=== PATIENT | male | born 1970 | race Caucasian/White ===

== ENCOUNTER 2019-04-12 18:29 | Inpatient (IN) | payer SELFPAY ==
[~2019-04-12] VITALS: Ht 170.1 cm; Wt 56.0 kg
[2019-04-12 18:50] VITALS: BP 125/83
--- NOTE | 2019-04-12 21:27 | NUR ---
REPORT FROM DELFINA KASPER AT THIS TIME. PATIENT CURRENTLY NOT IN EXAM ROOM.
[2019-04-12 21:50] LABS: BASO % 0.2 % (0.0-1.0); EOS # 0.1 10*3/uL (0.0-0.4); EOS % 0.9 % (1.0-4.0); HEMATOCRIT 44.3 % (42.0-52.0); HEMOGLOBIN 14.6 g/dl (14.0-18.0); LYMPH # 1.8 10*3/uL (1.3-4.4); LYMPH % 18.3 % (27.0-41.0); MEAN CELL VOLUME 87.5 fl (80.0-94.0); MEAN CORPUSCULAR HGB 28.9 pg (27.0-31.0); MEAN PLATELET VOLUME 9.4 fl (9.6-12.3); MONO # 0.9 10*3/uL (0.1-1.0); MONO % 9.1 % (3.0-9.0); NEUT # 7.1 10*3/uL (2.3-7.9); NEUT % 71.2 % (47.0-73.0); PLATELET COUNT AUTOMATED 213 10*3/uL (130-400); RED BLOOD COUNT 5.06 10*6/uL (4.50-5.90); RED CELL DISTRI WIDTH 13.3 % (0-14.5)
[2019-04-12 22:06] LABS: ALBUMIN 3.2 gm/dl (3.1-4.5); ALKALINE PHOSPHATASE 92 U/L (45-117); BUN 11 mg/dl (7-24); CHLORIDE 99 mmol/L (98-107); CREATININE 0.76 mg/dL (0.70-1.30); POTASSIUM 3.4 mmol/L (3.5-5.1); SGOT/AST 15 IU/L (3-35); SGPT/ALT 15 U/L (12-78); SODIUM 135 mmol/L (136-145)
[2019-04-12 23:50] LABS: BILIRUBIN NEGATIVE (NEGATIVE); BLOOD NEGATIVE (NEGATIVE); CLARITY CLEAR (CLEAR); COLOR YELLOW (YELLOW); GLUCOSE NEGATIVE (NEGATIVE); KETONE NEGATIVE (NEGATIVE); LEUKO ESTERASE NEGATIVE (NEGATIVE); NITRITE NEGATIVE (NEGATIVE); PH 6.5 (5.0-9.0); SPECIFIC GRAVITY 1.015 (1.005-1.030)
[2019-04-12 23:56] LABS: MUCOUS TRACE
[2019-04-13] VITALS (7 sets, daily range): BP systolic 119–158; BP diastolic 58–95
[2019-04-13 00:01] LABS: URINE AMPHETAMINES < 1000 (1000ng/ml); URINE BARBITURATES < 200 (200ng/ml); URINE BENZODIAZEPINES < 200 (200ng/ml); URINE CANNABINOIDS (THC) < 50 (50ng/ml); URINE COCAINE > 300 (300ng/ml); URINE METHADONE < 300 (300ng/ml); URINE OPIATES > 300 (300ng/ml)
[2019-04-13 00:02] LABS: URINE PHENCYCLIDINE < 25 (25ng/ml)
--- NOTE | 2019-04-13 00:20 | NUR ---
Time: 19 A 48 year old MALE admitted to under services of LUISITO KOWALSKI DO. Pt. arrived via ambulatory from ER. Chief complaint: MATTHEW LAND
--- NOTE | 2019-04-13 02:25 | NUR ---
NOTIFIED OF NO HOME MEDICATIONS AND ABCESS WOUND, WILL ENTER WOUND CARE ORDERS.
[2019-04-13 05:51] LABS: BUN 9 mg/dl (7-24); CHLORIDE 104 mmol/L (98-107); CREATININE 0.71 mg/dL (0.70-1.30); POTASSIUM 3.6 mmol/L (3.5-5.1); SODIUM 138 mmol/L (136-145)
[2019-04-13 05:56] LABS: CHOLESTEROL 130 mg/dL (<200); HDL CHOLESTEROL 34 mg/dl (40-60); LDL CHOLESTEROL 79 mg/dL (9-159); TRIGLYCERIDES 85 mg/dl (<150); VLDL CHOLESTEROL 17 mg/dL (6-40)
[2019-04-13 06:19] LABS: BASO % 0.4 % (0.0-1.0); EOS # 0.1 10*3/uL (0.0-0.4); EOS % 1.2 % (1.0-4.0); HEMATOCRIT 41.9 % (42.0-52.0); HEMOGLOBIN 13.4 g/dl (14.0-18.0); LYMPH % 21.7 % (27.0-41.0); MEAN CELL VOLUME 87.5 fl (80.0-94.0); MEAN PLATELET VOLUME 9.7 fl (9.6-12.3); MONO # 0.9 10*3/uL (0.1-1.0); MONO % 9.8 % (3.0-9.0); NEUT % 66.6 % (47.0-73.0); PLATELET COUNT AUTOMATED 194 10*3/uL (130-400); RED BLOOD COUNT 4.79 10*6/uL (4.50-5.90); RED CELL DISTRI WIDTH 13.2 % (0-14.5)
--- NOTE | 2019-04-13 06:19 | NUR ---
DELBERT BARBOUR [id number] Please refer to the physician's history and physical for past medical history, comorbid conditions, and allergies. Diagnosis: ABSCESS SEPSIS IV DRUG USER Benedict Score: 20,LOW OR NO RISK WOUND DESCRIPTIONS: Wound Number: 1 Location of the wound: left forearm Type of wound: abscess Thickness: Full Size: 3.5cm x 4.5cm x 0.1cm Tunneling: none Undermining: none Sinus Tract: none Presence of Exudate: Serosanguineous Amount: Moderate Color: Red, purple Odor: None Periwound Skin Appearance: Erythema Wound edges: approximated Pain (associated with wound): tender to touch How does patient state this happened? pt stated this started 4 days ago Surface the patient is resting on: Isoflex SKIN PREVENTION RECOMMENDATION: 1. Pressure redistribution support surface as appropriate 2. Elevate heels 3. Remove boots/TEDS every shift and reapply 4. Head of bed 30 degrees as tolerated 5. Assess nutrition and hydration 6. Manage moisture 7. Avoid the use of containment devices while in bed 8. Use absorptive products on surfaces limit layers of linens on bed 9. Turn and reposition every 1-2 hours in bed and every 1 hour in chair as tolerated 10. Weight shifts every 15 minutes while up in chair 11. Offloading with pillows or device to keep heels elevated off bed 12. Monitor skin at least every shift 13. Inspect under medical devices twice a day WOUND TREATMENT RECOMMENDATIONS: Cleanse left ac with nss and apply dsd daily and prn for soiling. Dr. Ocampo is already on consult may need possible I&D.
--- NOTE | 2019-04-13 06:47 | NUR ---
Dr. KEVIN consulted for ABSCESS OF [facility]. EVGENY AGUSTIN
--- NOTE | 2019-04-13 07:10 | NUR ---
ARRIVED ON SHIFT, INTRODUCED TO PATIENT, BEDSIDE REPORT RECIEVED, WHITEBOARD UPDATED, NO NEEDS VOICED AT THIS TIME.
--- NOTE | 2019-04-13 08:07 | NUR ---
Shift chart check completed.
--- NOTE | 2019-04-13 08:30 | NUR ---
Testing Machine Operator in to talk to patient. Patient states lives at home with alone. There are few steps in the home. Physician: none Pharmacy: none Home health services: none Patient's level of ADLs: INDEPENDENT Patient has working utilities: all working DME: none Follow-up physician's appointment after d/c: will be made by hospitalist nurse director upon discharge with doctor of patient's choice Does patient want to access PORTAL?: no Discharge plan discussed with patient, he states he lives at home alone, is independent in adls and ambulation, will be returning home when medically stable and denies any home needs. BASIM HUSSEIN
--- NOTE | 2019-04-13 13:15 | NUR ---
WENT DOWN TO CHECK ON PATIENTS IV VANCOMYCIN, HE WAS SEATED IN CHAIR, HE DEMANDED I CALL THE DOCTOR HE WANTED OUT OF HERE. I ASKED PATIENT WHAT WAS WRONG, HE STATED EVERYTHING WAS, ADVISED HIM HE REALLY NEEDS THE ANTIBIOTICS, HE STATED IF THE DOCTOR DOESN'T DISCHARGE HIM HE WAS LEAVING ANYWAY. CALL PLACED TO HOSPITALIST LINE, SPOKE WITH DR. LEAL TO ADVISE OF PATIENT WANTING TO LEAVE. HE ADVISED THAT PATIENT WILL NEED TO GO AMA IF HE CHOOSES TO LEAVE.
--- NOTE | 2019-04-13 13:20 | NUR ---
WENT TO PATIENTS ROOM, ADVISED WOULD NOT DISCHARGE HIM HE NEEDED THE CONTINUED ATB. HE STATED HE STILL WANTED TO LEAVE. REVIEWED AND SIGNED AMA FORM WELL INVINTORY SHEET. INFORMATION SYSTEMS ANALYST NOTIFIED.
== END 2019-04-13 14:09 | disposition left against medical advice (07) | DRG 603 ==
LOC: ED 18:29 → 4E 22:02 → EDHOLD 22:02 → 4E 22:43
PROVIDERS: Family Medicine; Nurse Practitioner; ADMIT Internal Medicine
PROC: 0X9F0ZZ Drainage of Left Lower Arm, Open Approach (ICD-10-PCS; principal; 2019-04-12)
PROC: 0H9EXZZ Drainage of Left Lower Arm Skin, External Approach (ICD-10-PCS; 2019-04-13)
DX: L03.114 Cellulitis of left upper limb (principal); E87.1 Hypo-osmolality and hyponatremia; L02.414 Cutaneous abscess of left upper limb; I80.8 Phlebitis and thrombophlebitis of other sites; F11.10 Opioid abuse, uncomplicated; F17.200 Nicotine dependence, unspecified, uncomplicated; F19.10 Other psychoactive substance abuse, uncomplicated; R00.1 Bradycardia, unspecified; E87.6 Hypokalemia; Z53.21 Procedure and treatment not carried out due to patient leaving prior to being seen by health care provider; Z83.79 Family history of other diseases of the digestive system; Z84.89 Family history of other specified conditions; Z22.322 Carrier or suspected carrier of Methicillin resistant Staphylococcus aureus

== ENCOUNTER 2023-03-22 19:59 | Emergency (ER) | payer BC ==
[~2023-03-22] VITALS: Ht 170.1 cm; Wt 54.4 kg
[2023-03-22 20:15] VITALS: BP 127/80
[2023-03-22 20:53] LABS: BASO % 0.3 % (0.0-1.0); EOS % 0.2 % (1.0-4.0); HEMATOCRIT 49.4 % (42.0-52.0); LYMPH # 1.3 10*3/uL (1.3-4.4); LYMPH % 20.3 % (27.0-41.0); MEAN CELL VOLUME 89.2 fl (80.0-94.0); MEAN CORPUSCULAR HGB CONC 31.4 g/dl (33.0-37.0); MEAN PLATELET VOLUME 10.8 fl (9.6-12.3); MONO # 0.5 10*3/uL (0.1-1.0); MONO % 8.2 % (3.0-9.0); NEUT # 4.5 10*3/uL (2.3-7.9); NEUT % 70.8 % (47.0-73.0); PLATELET COUNT AUTOMATED 177 10*3/uL (130-400); RED BLOOD COUNT 5.54 10*6/uL (4.50-5.90); RED CELL DISTRI WIDTH 13.8 % (0-14.5); WHITE BLOOD COUNT 6.3 10*3/uL (4.8-10.8)
[2023-03-22 21:12] LABS: BUN 7 mg/dl (9-23); CHLORIDE 102 mmol/L (98-107); POTASSIUM 3.4 mmol/L (3.4-5.1)
[2023-03-22] MEDS ORDERED: SEPTDS PO (21:20)
== END 2023-03-22 21:41 | disposition home or self-care (01) ==
LOC: ED 19:59
PROVIDERS: Internal Medicine
DX: S80.921A Unspecified superficial injury of right lower leg, initial encounter (principal); F17.200 Nicotine dependence, unspecified, uncomplicated; X58.XXXA Exposure to other specified factors, initial encounter; Y93.89 Activity, other specified; Y92.009 Unspecified place in unspecified non-institutional (private) residence as the place of occurrence of the external cause; Y99.8 Other external cause status

== ENCOUNTER → 2023-03-26 | Outpatient (CLI) | payer BC ==
[~2023-03-26] MED LIST: SEPTDS PO
== END | disposition home or self-care (01) ==
LOC: WOUNDCARE 07:21
PROVIDERS: ATTEND Nurse Practitioner Family
DX: L02.415 Cutaneous abscess of right lower limb (principal); L02.612 Cutaneous abscess of left foot; L03.116 Cellulitis of left lower limb; L03.115 Cellulitis of right lower limb; L98.492 Non-pressure chronic ulcer of skin of other sites with fat layer exposed; F17.200 Nicotine dependence, unspecified, uncomplicated; F19.10 Other psychoactive substance abuse, uncomplicated